=== PATIENT | female | born 1995 | race Hispanic/Latino ===

== ENCOUNTER → 2024-10-01 | Outpatient (CLI) | payer BC ==
[~2024-10-01] MED LIST: PREN-146 PO
--- NOTE | 2024-10-01 11:24 | HMCIMG ---
US BREAST BILATERAL REASON: BREAST PAIN. COMPARISON: None TECHNIQUE: Bilateral breast ultrasound study was performed. FINDINGS: No evidence of cystic or hypoechoic mass is seen. Both breasts have dense fibroglandular tissue. There is right axillary lymph node measuring 15 x 11 x 17 mm. There is left axillary lymph node measuring 9 x 7 x 11 mm. IMPRESSION: Dense breasts. No cystic or hypoechoic mass is seen. CATEGORY 2: BENIGN FINDINGS Recommend monthly self breast exam as well as annual clinical examination.
== END | disposition home or self-care (01) ==
LOC: RAH 08:21
PROVIDERS: ATTEND Family Medicine
DX: R92.323 Mammographic fibroglandular density, bilateral breasts (principal); N64.4 Mastodynia